=== PATIENT | female | born 1940 | race Caucasian/White ===

== ENCOUNTER 2017-07-03 20:08 | Emergency (ER) | payer OTHER ==
[~2017-07-03] VITALS: Ht 149.9 cm; Wt 61.2 kg
[2017-07-04] MEDS ORDERED: KETO10TA2 PO (03:29)
[2017-07-04] MEDS ORDERED: MEDROLPACK PO (03:29)
[2017-07-04] MEDS ORDERED: SKELAXIN800 MG PO (03:29)
[2017-07-04] MEDS ORDERED: NEURONTIN800 MG PO (03:29)
== END 2017-07-04 03:59 | disposition home or self-care (01) ==
LOC: ER 20:08
DX: M54.32 Sciatica, left side (principal)